=== PATIENT | male | born 1940 | race African-American/Black ===

== ENCOUNTER 2023-04-15 14:08 | Emergency (ER) | payer OTHER ==
[~2023-04-15] VITALS: Ht 180.3 cm; Wt 83.0 kg
[2023-04-15 14:12] VITALS: BP 97/55; PULSE 89; RESP 20; TEMP 98.1; O2SAT 97
[2023-04-15] MEDS ORDERED: TOPUD MT (16:54)
== END 2023-04-15 17:26 | disposition home or self-care (01) ==
LOC: ER 14:08
DX: M79.605 Pain in left leg (principal); E11.9 Type 2 diabetes mellitus without complications; Z95.0 Presence of cardiac pacemaker
CPT/HCPCS: 93971; 99284